=== PATIENT | male | born 2000 | race Caucasian/White ===

== ENCOUNTER 2021-02-10 08:40 | Emergency (ER) | payer BC ==
[~2021-02-10] VITALS: Ht 180.3 cm; Wt 80.0 kg
[2021-02-10] MEDS ORDERED: ACETAMINOPHEN 325MG TABLET PO ONE (11:15)
[2021-02-10] MEDS ORDERED: TOPUD MT (16:28)
[2021-02-10 16:48] VITALS: BP 128/84
== END 2021-02-10 16:51 | disposition home or self-care (01) ==
LOC: ER 10:24
DX: S46.811A Strain of other muscles, fascia and tendons at shoulder and upper arm level, right arm, initial encounter (principal); S46.812A Strain of other muscles, fascia and tendons at shoulder and upper arm level, left arm, initial encounter; E86.0 Dehydration; Z98.890 Other specified postprocedural states; X50.0XXA Overexertion from strenuous movement or load, initial encounter; Y93.89 Activity, other specified; Y92.89 Other specified places as the place of occurrence of the external cause; Y99.8 Other external cause status
CPT/HCPCS: 73030; 99283